=== PATIENT | female | born 1995 | race Caucasian/White ===

== ENCOUNTER 2019-05-02 13:42 | Emergency (ER) | payer BC ==
[2019-05-02 13:52] VITALS: BP 107/69
--- NOTE | 2019-05-02 14:00 | UC ---
Complaint Female HPI - HPI Summary HPI Summary: 23 y/o female presents to the urgent care c/o pain urination, increased urinary frequency, possibly blood in urine that began this morning 05/02/19 0400. Pt states that she took cranberry pills. Pt states she had a UTI 1 month ago that she feels did not completely go away. Pt has history of UTI. pain os urination is 3/10 associated w/ pelvic discomfort. Pt denies fever, flank pain , lower back pain, abdominal pain, N/V/d, vaginal discharge. - History Of Current Complaint Chief Complaint: UCGU Stated Complaint: BURNING URINATION Time Seen by Provider: 05/02/19 13:58 Hx Obtained From: Patient Hx Last Menstrual Period: 04/21/19 Onset/Duration: Gradual Onset, Lasting Hours - 8hrs, Still Present Timing: Intermittent, Lasting Seconds Severity Initially: Mild Severity Currently: Mild Pain Intensity: 3 Pain Scale Used: 0-10 Numeric Character: Burning Aggravating Factor(s): Urination Alleviating Factor(s): Other - took Azo tabs this morning and felt better Associated Signs And Symptoms: Negative: Fever, Back Pain, Vaginal Discharge Related Hx: Similar Episode/Dx as: - UTI 1 month ago and Rx Macrobid and she thinks it didn't completely resolve - Risk Factors Ectopic Risk Factor: Negative Ovarian Torsion Risk Factor: Negative - Allergies/Home Medications Allergies/Adverse Reactions: Allergies Allergy/AdvReac Type Severity Reaction Status Date / Time sertraline [From Zoloft] Allergy Hallucinati Verified 05/02/19 13:51 ons Home Medications: Home Medications Cranberry 1 cap PO DAILY 05/02/19 [History Confirmed 05/02/19] PMH/Surg Hx/FS Hx/Imm Hx Previously Healthy: Yes - Pt denies PMHX - Surgical History Surgical History: None - Family History Known Family History: Positive: Cardiac Disease, Diabetes Negative: Respiratory Disease - Social History Occupation: Employed Full-time Lives: With Family Alcohol Use: Occasionally Substance Use Type: None Smoking Status (MU): Never Smoked Tobacco Review of Systems All Other Systems Reviewed And Are Negative: Yes Constitutional: Positive: Negative Skin: Positive: Negative Eyes: Positive: Negative ENT: Positive: Negative Respiratory: Positive: Negative Cardiovascular: Positive: Negative Gastrointestinal: Positive: Negative Genitourinary: Positive: Dysuria, Hematuria, Frequency Motor: Positive: Negative Neurovascular: Positive: Negative Musculoskeletal: Positive: Negative Neurological: Positive: Negative Psychological: Positive: Negative Is Patient Immunocompromised?: No Physical Exam - Summary Physical Exam Summary: VITAL SIGNS: Reviewed. GENERAL: Patient is a well developed and nourished female who is sitting comfortable in the examining table. Patient is not in any acute respiratory distress. HEAD AND FACE: No signs of trauma. No ecchymosis, hematomas or skull depressions. No sinus tenderness. EYES: PERRLA, EOMI x 2, No injected conjunctiva, clear watery eyes, no nystagmus. No photophobia. EARS: Hearing grossly intact. Ear canals and tympanic membranes are within normal limits. MOUTH: pharynx with no erythema, no exudates,no palatal petechiae. no B/L tonsillar enlargement Uvula in midline. NECK: Supple, trachea is midline, no lymphadenopathy, no JVD, no carotid bruit, no c-spine tenderness, neck with full ROM. CHEST: Symmetric, no tenderness at palpation LUNGS: Clear to auscultation bilaterally. No wheezing or crackles. CVS: Regular rate and rhythm, S1 and S2 present, no murmurs or gallops appreciated. ABDOMEN: Soft, non-tender. No signs of distention. No rebound no guarding, and no masses palpated. Bowel sounds are normal. BACK:no scoliosis or lesions, non tender to palpation, No B/L CVA tenderness EXTREMITIES: FROM in all major joints, no edema, no cyanosis or clubbing. NEURO: Alert and oriented x 3. No acute neurological deficits. Speech is normal and follows commands. SKIN: Dry and warm Triage Information Reviewed: Yes Vital Signs: Initial Vital Signs Temp 99.7 F 05/02/19 13:47 Pulse 69 05/02/19 13:47 Resp 18 05/02/19 13:47 BP 107/69 05/02/19 13:47 Pulse Ox 100 05/02/19 13:47 Complaint Female Dx - Course Course Of Treatment: 23 y/o female presents to the urgent care c/o pain urination, increased urinary frequency, possibly blood in urine that began this morning 05/02/19 0400. Pt states that she took cranberry pills. Pt states she had a UTI 1 month ago that she feels did not completely go away. Pt has history of UTI. pain os urination is 3/10 associated w/ pelvic discomfort. Pt denies fever, flank pain , lower back pain, abdominal pain, N/V/d, vaginal discharge. Hx obtained. PE: WNL. UA unable to perfome at the clinic today since Pt took Axo tabs this morning. test ordered: negative. Sensitivity records shows resistance to Bactrim . Pt Rx Keflex PO x 7 days. Pyridium 100mg PO TID x 2 days. Advised to increase fluid intake. Urine sent for culture if any abnormality Pt will be notified for further treatment. Pt advised If symptoms do not improve to return to the urgent care or f/u with PCP. Pt understood and agreed. Left the clinic ambulating. - Differential Dx/Diagnosis Differential Diagnosis/HQI/PQRI: Cervicitis, Pelvic Inflammatory Disease, , Renal Colic, Ureteral Stone, Urinary Tract Infection Provider Diagnosis: UTI (urinary tract infection), Dysuria Discharge - Sign-Out/Discharge Documenting (check all that apply): Patient Departure - D/C home All imaging exams completed and their final reports reviewed: No Studies - Discharge Plan Condition: Stable Disposition: HOME Prescriptions: Cephalexin CAP* [Keflex CAP*] 500 mg PO BID PC #14 cap Phenazopyridine TAB* [Pyridium 100 mg TAB*] 100 mg PO TID #6 tab Patient Education Materials: Urinary Tract Infection in Women (ED) Referrals: Casandra Cervantes MD [Primary Care Provider] - 3 Days Additional Instructions: 1- Please take Keflex PO x 7 days. Pyridium 100 mg PO TID x 2 days to alleviate urinary symptoms. Increase increase fluid intake. drink cranberry juice. 2-Urine sent for culture if any abnormality, you will be notified for further treatment. 3-If symptoms do not improve please return to the urgent care or f/u with your PCP for further management. - Billing Disposition and Condition Condition: STABLE Disposition: Home - Attestation Statements Provider Attestation: I was available for consult. This patient was seen by the [facility]. The patient was not presented to , seen by or examined by -Chad Triana MD
== END 2019-05-02 14:20 | disposition home or self-care (01) ==
LOC: UCEAST 13:42
DX: N39.0 Urinary tract infection, site not specified (principal); Z87.440 Personal history of urinary (tract) infections
CPT/HCPCS: 84702; 87086; 99212; G0463

== ENCOUNTER 2019-05-20 15:52 | Emergency (ER) | payer BC ==
[2019-05-20 16:17] VITALS: BP 118/72
--- NOTE | 2019-05-20 17:21 | UC ---
Complaint Female HPI - HPI Summary HPI Summary: Long history of urinary tract infections, about 2 per year since age 19. For the past 2 months, has had recurrent symptoms, with treatment with macrodantin in March with persistent sympotms. Assessed here on 05/05 with negative culture, treated with cephalexin and pyridium. Has had recurrent symptoms for the past 2 months, with noticed gross hematuria today along with left flank pain. UA was normal at PMD's office 3 days ago, with negative GC/Chlamydia. Same sexual partner x 3 years. No headache, nausea or vomiting. - History Of Current Complaint Chief Complaint: UCGU Stated Complaint: UTI Time Seen by Provider: 05/20/19 16:17 Hx Obtained From: Patient Hx Last Menstrual Period: 04/22/19 Onset/Duration: Gradual Onset, Lasting Weeks Timing: Intermittent, Lasting Days Severity Initially: Moderate Severity Currently: Moderate Pain Intensity: 2 Character: Dull, Cramping Aggravating Factor(s): Movement Alleviating Factor(s): Nothing Associated Signs And Symptoms: Positive: Fever, Back Pain. Negative: Nausea, Vomiting(# Of Episodes =) - Allergies/Home Medications Allergies/Adverse Reactions: Allergies Allergy/AdvReac Type Severity Reaction Status Date / Time sertraline [From Zoloft] Allergy Hallucinati Verified 05/20/19 16:17 ons PMH/Surg Hx/FS Hx/Imm Hx Previously Healthy: Yes - Surgical History Surgical History: None - Family History Known Family History: Positive: None, Cardiac Disease, Diabetes Negative: Hypertension, Respiratory Disease - Social History Occupation: Student - student counsellor Lives: With Family Alcohol Use: Occasionally Substance Use Type: None Smoking Status (MU): Never Smoked Tobacco Review of Systems All Other Systems Reviewed And Are Negative: Yes Constitutional: Positive: Fever, Fatigue Eyes: Positive: Negative ENT: Positive: Negative Respiratory: Positive: Negative Cardiovascular: Positive: Negative Gastrointestinal: Positive: Negative Genitourinary: Positive: Dysuria, Hematuria, Frequency, Other - paraguard IUD in place. No vaginal discharge. Motor: Positive: Negative Neurovascular: Positive: Negative Musculoskeletal: Positive: Negative Neurological: Positive: Negative Psychological: Positive: Negative Physical Exam Triage Information Reviewed: Yes Appearance: Ill-Appearing - looks mildly unwell, Pain Distress - mild Vital Signs: Initial Vital Signs Temp 99.9 F 05/20/19 16:12 Pulse 86 05/20/19 16:12 Resp 12 05/20/19 16:12 BP 118/72 05/20/19 16:12 Pulse Ox 100 05/20/19 16:12 Eye Exam: Normal ENT: Positive: Pharynx normal Neck: Positive: Supple, Nontender, No Lymphadenopathy Respiratory: Positive: Lungs clear, Normal breath sounds Cardiovascular: Positive: RRR, No Murmur Abdomen Description: Positive: No Organomegaly, Soft, Other: - left flank tenderness with palpation, no masses felt.. Negative: CVA Tenderness (R), CVA Tenderness (L), Guarding Bowel Sounds: Positive: Present Neurological Exam: Normal Psychological Exam: Normal Skin Exam: Normal Diagnostics - Laboratory Lab Results: UA with RBC and WBC - Radiology No standard instances Radiology Interpretation Completed By: Radiologist Summary of Radiographic Findings: No hydronephrosis or stones, + severe constipation. Read by [facility]. Complaint Female Dx - Course Course Of Treatment: augmentin given positive urine, advised urological evaluation indicated due to recurrent infections and gross hematuria. Pyridium for discomfort. - Differential Dx/Diagnosis Provider Diagnosis: UTI (urinary tract infection) Discharge - Sign-Out/Discharge Documenting (check all that apply): Patient Departure All imaging exams completed and their final reports reviewed: Yes - Discharge Plan Condition: Stable Disposition: HOME Prescriptions: Amoxicillin/Clavulanate TAB* [Augmentin TAB 875*] 875 mg PO BID #14 tab Phenazopyridine 200 mg (NF) [Pyridium 200 MG tab *] 200 mg PO TID PRN #20 tab PRN Reason: Spasms - Bladder Patient Education Materials: Urinary Tract Infection in Women (ED) Referrals: Casandra Cervantes MD [Primary Care Provider] - Leo Reyes MD [Medical Doctor] - Additional Instructions: As discussed, your urine analysis suggests urinary infection, and you will begin a course of augmentin. Continue high intake of fluids and pyridium as needed. Due to the number of infections and the continue bouts of blood in your urine, I suggest evaluation by a urologist. - Billing Disposition and Condition Condition: STABLE Disposition: Home
== END 2019-05-20 18:46 | disposition home or self-care (01) ==
LOC: UCEAST 15:52
DX: N39.0 Urinary tract infection, site not specified (principal); R31.0 Gross hematuria; Z87.440 Personal history of urinary (tract) infections
CPT/HCPCS: 74176; 81003; 84702; 87086; 99212; G0463